=== PATIENT | male | born 1990 | race Caucasian/White ===

== ENCOUNTER 2018-10-08 07:26 | Emergency (ER) | payer MEDICAID ==
[~2018-10-08] VITALS: Ht 172.7 cm; Wt 86.2 kg
[2018-10-08 08:30] VITALS: BP 111/81
== END 2018-10-08 08:35 | disposition home or self-care (01) ==
LOC: ER 07:26
DX: T41.291A Poisoning by other general anesthetics, accidental (unintentional), initial encounter (principal); R53.1 Weakness; F11.10 Opioid abuse, uncomplicated; Y92.89 Other specified places as the place of occurrence of the external cause
CPT/HCPCS: 99283

== ENCOUNTER 2018-10-27 04:23 | Emergency (ER) | payer MEDICAID ==
[~2018-10-27] VITALS: Ht 185.4 cm; Wt 91.0 kg
[2018-10-27] MEDS ORDERED: NALOXONE HCL 0.4 MG/ML 1ML VIAL IV ONE (05:00)
[2018-10-27] MEDS ORDERED: SODIUM CHLORIDE 0.9% 1,000 ML IV ONE (05:45)
[2018-10-27 06:55] VITALS: BP 141/90
== END 2018-10-27 06:55 | disposition home or self-care (01) ==
LOC: ER 04:23
DX: F11.10 Opioid abuse, uncomplicated (principal)
CPT/HCPCS: 93005; 96361; 96374; 99283; J2310; J7030; Z7610

== ENCOUNTER 2018-11-22 16:51 | Emergency (ER) | payer MEDICAID ==
[~2018-11-22] VITALS: Ht 182.9 cm; Wt 88.6 kg
[2018-11-22 20:29] VITALS: BP 135/81
== END 2018-11-22 20:30 | disposition home or self-care (01) ==
LOC: ER 16:51
DX: L03.114 Cellulitis of left upper limb (principal); H66.92 Otitis media, unspecified, left ear; F90.9 Attention-deficit hyperactivity disorder, unspecified type; F19.10 Other psychoactive substance abuse, uncomplicated; Z87.891 Personal history of nicotine dependence
CPT/HCPCS: 99283